=== PATIENT | female | born 1980 | race Caucasian/White ===

== ENCOUNTER 2020-01-27 21:44 | Emergency (ER) | payer SELFPAY ==
[~2020-01-27] VITALS: Ht 167.6 cm; Wt 99.8 kg
--- NOTE | 2020-01-27 21:49 | PHYS DOC ---
General Adult HPI: HPI: ".. I am having some kind of allergic reaction.. I itch every where.. this rash is all over.. but more on face.. my eyes are swelling... I am 33 weeks .. the only thing new in my diet is 'Somem[employer]" and " [place] food yesterday...".. Patient is a 39 year old female who presents with above hx and complaints of facial edema and hives. Pt. 33 weeks gravid. Patient denies any travel. Patient denies specific ill contacts. Patient denies do flu vaccinations or any vaccinations. Patient does not take vitamins. Patient has taken some Benadryl at home. Patient denies history of previous food allergies.. The patient follows with Dr. Clayton. Review of Systems: Review of Systems: Constitutional: Denies fever or chills Eyes: Denies change in visual acuity HENT: Denies nasal congestion or sore throat Respiratory: Denies cough or shortness of breath Cardiovascular: Denies chest pain or edema GI: Denies abdominal pain, nausea, vomiting, bloody stools or diarrhea : Denies dysuria Musculoskeletal: Denies back pain or joint pain Integument: Complains of generalized hives Neurologic: Denies headache, focal weakness or sensory changes Endocrine: Denies polyuria or polydipsia Lymphatic: Denies swollen glands Psychiatric: Denies depression or anxiety Family History: Family History: Noncontributory to presentation Current Medications: Current Meds: See nursing for home meds Allergies: Allergies: Allergic to penicillins Physical Exam: PE: Constitutional: Moderate acute distress, non-toxic appearance. [] HENT: Normocephalic, atraumatic, bilateral external ears normal, oropharynx moist, no oral exudates, nose normal. [] Eyes: PERRLA, EOMI, conjunctiva normal, no discharge. [] Neck: Normal range of motion, no tenderness, supple, no stridor. [] Cardiovascular:Heart rate regular rhythm, no murmur [] Lungs & Thorax: Bilateral breath sounds clear to auscultation [] Abdomen: Bowel sounds normal, soft, no tenderness, no masses, no pulsatile masses. Gravid. heart rate 140s. Active movement Skin: Warm, dry, no erythema, hive or entire body] Back: No tenderness, no CVA tenderness. [] Extremities: No tenderness, no cyanosis, no clubbing, ROM intact, no edema. [] Neurologic: Alert and oriented X 3, normal motor function, normal sensory function, no focal deficits noted. DTRs +2 patellar and brachial. Psychologic: Affect anxious, judgement normal, mood normal. [] EKG: EKG: [] Radiology/Procedures: Radiology/Procedures: [] Heart Score: Risk Factors: Risk Factors: DM, Current or recent (<one month) smoker, HTN, HLP, family history of CAD, obesity. Risk Scores: Score 0 - 3: 2.5% MACE over next 6 weeks - Discharge Home Score 4 - 6: 20.3% MACE over next 6 weeks - Admit for Clinical Observation Score 7 - 10: 72.7% MACE over next 6 weeks - Early Invasive Strategies Course & Med Decision Making: Course & Med Decision Making Pertinent Labs and Imaging studies reviewed. (See chart for details) Patient will avoid any new intake of foods. Patient take Benadryl 50 mg up to 4 times a day for itching. Patient take Pepcid 20 mg twice a day. Patient take prednisone 50 mg a day for the next 5 days. Patient use MDI 2 puffs 4 times a day. Patient follow-up with primary care. Patient follow-up with her [employer]. Patient return if any concerns. Impression: 1. Allergic reaction- 2. Hives 3. Gravid 33 weeks [] Dragon Disclaimer: Dragon Disclaimer: This electronic medical record was generated, in whole or in part, using a voice recognition dictation system. Departure Departure: Referrals: PCP,NO (PCP) Scripts Famotidine (PEPCID) 20 Mg Tablet 20 MG PO BID for hives for 10 Days, #20 TAB Prov: RHIANNA YU MD 01/28/20 Prednisone (PREDNISONE) 50 Mg Tablet 50 MG PO DAILY for allergy for 5 Days, #5 TAB Prov: RHIANNA YU MD 01/28/20 Dragon Disclaimer This chart was dictated in whole or in part using Voice Recognition software in a busy, high-work load, and often noisy Emergency Department environment. It may contain unintended and wholly unrecognized errors or omissions. Dragon Disclaimer This chart was dictated in whole or in part using Voice Recognition software in a busy, high-work load, and often noisy Emergency Department environment. It may contain unintended and wholly unrecognized errors or omissions. RHIANNA YU MD Jan 27, 2020 21:49
[2020-01-27] MEDS ORDERED: METR500T PO (22:04)
[2020-01-27 22:45] LABS: BARBITURATES NEG (NEG); BENZODIAZEPINES NEG (NEG); CANNABINOIDS NEG (NEG); COCAINE NEG (NEG); METHADONE NEG (NEG); OPIATES NEG (NEG); PHENCYCLIDINE NEG (NEG)
[2020-01-27 22:46] LABS: AMPHETAMINE/METHAMPHETAMINE NEG (NEG)
[2020-01-27 22:48] LABS: BACTERIA,URINE 0 /HPF (0-FEW); BILIRUBIN,URINE NEG (NEG); CLARITY,URINE CLEAR; COLOR,URINE YELLOW; GLUCOSE,URINE NEG (NEG); NITRITE,URINE NEG (NEG); RBC,URINE 0 /HPF (0-2); SQUAMOUS EPITHELIAL CELL,UR MOD /LPF; UROBILINOGEN,URINE 0.2 mg/dL (0.2 mg/dL); WBC,URINE OCC /HPF (0-4)
[2020-01-27] MEDS: ALBUTEROL SULFATE 8GM INHALER. INH ONE (23:00)
[2020-01-27] MEDS ORDERED: methylPREDNISolone SOD SUCC PF 40 MG/ML VIAL. IV ONE (23:00)
[2020-01-27] MEDS ORDERED: FAMOTIDINE 20 MG/2 ML VIAL IVP ONE (23:00)
[2020-01-28] MEDS: ALBUTEROL SULFATE 8GM INHALER. INH ONE (01:00)
[2020-01-28] MEDS ORDERED: ALBUTEROL SULFATE 8GM INHALER. INH ONE (01:15)
[2020-01-28] MEDS ORDERED: PRED50TA PO (01:22)
[2020-01-28] MEDS ORDERED: FAMO-63 PO (01:22)
[2020-01-28 01:35] VITALS: BP 112/62
== END 2020-01-28 01:35 | disposition home or self-care (01) ==
LOC: ER 21:44
DX: O26.893 Other specified pregnancy related conditions, third trimester (principal); T78.49XA Other allergy, initial encounter; L29.9 Pruritus, unspecified; Z3A.33 33 weeks gestation of pregnancy; Z88.0 Allergy status to penicillin; X58.XXXA Exposure to other specified factors, initial encounter
CPT/HCPCS: 36415; 80307; 81001; 87086; 94640; 96374; 96375; 99284; J2920; J3490; J7613; 94664